=== PATIENT | female | born 1980 | race Caucasian/White ===

== ENCOUNTER 2017-01-09 13:07 | Observation (INO) | payer OTHER ==
[2017-01-09] MEDS ORDERED: ONDANSETRON INJ 4 MG/2 ML VIAL IV ONE (13:21)
[2017-01-09] MEDS ORDERED: SODIUM CHLORIDE 0.9% 1000ML 1,000 ML IVS ONE (13:21)
[2017-01-09] MEDS ORDERED: KETOROLAC TROMETHAMINE INJ 30 MG/ML VIAL IV ONE (13:21)
--- NOTE | 2017-01-09 13:25 | ED.PDOC ---
History of Present Illness - General Chief Complaint: Abdominal Pain Stated Complaint: right abdominal discomfort Time Seen by Provider: 01/09/17 13:18 Information Source: patient, RN notes reviewed, Vital Signs reviewed Exam Limitations: no limitations - History of Present Illness Initial Comments: Patient presents to ER with R flank and RUQ pain that started this morning. She is having chills, nausea, vomiting and diarrhea. No similar episodes in the past. She has been told she has kidney stones but has never passed one. No urinary symptoms. + SOB with pain, no chest pain. Abdominal Pain Onset Location: RUQ, flank - Right Pain Radiation: no radiation Quality: moderate, cramping, sharpness, stabbing Timing/Duration: 7-24 hours Improving Factors: nothing Worsening Factors: nothing Associated Symptoms: diarrhea, fever/chills, nausea/vomiting, shortness of breath Review of Systems - Review of Systems Constitutional: States: chills. Denies: diaphoresis, fever, malaise Respiratory: States: short of breath. Denies: cough Cardiology: States: no symptoms reported. Denies: chest pain Gastrointestinal/Abdominal: States: see HPI, abdominal pain, diarrhea, nausea, vomiting Genitourinary: States: no symptoms reported. Denies: dysuria, frequency, hematuria, pain Musculoskeletal: States: back pain Skin: States: no symptoms reported Neurological: States: no symptoms reported. Denies: headache Family Medical History - Family History Mother Family History: No Known Living Status: Still Living Physical Exam - Physical Exam General Appearance: Alert, Obvious distress - In obvious pain, Well Developed, Well Groomed, Well Hydrated, Well Nourished Neck: supple, normal inspection Respiratory: chest non-tender, lungs clear, normal breath sounds, no respiratory distress, no accessory muscle use Cardiovascular/Chest: regular rate, rhythm, no edema, no gallop, no JVD, no murmur Gastrointestinal/Abdominal: normal bowel sounds, soft, no organomegaly, no pulsatile mass, tenderness - RUQ and suprapubic Back Exam: CVA tenderness (R) Extremity: normal range of motion, normal inspection Neurologic: alert, normal mood/affect, oriented x 3 Skin Exam: normal color, warm/dry Comments: Vital Signs - 24 hr 01/09/17 01/09/17 13:18 14:15 Temperature 99.6 F Pulse Rate [ 115 H 84 Left Radial] Respiratory 24 24 Rate Blood Pressure 174/128 104/73 [Left Arm] O2 Sat by Pulse 97 96 Oximetry Progress - Progress Progress: 01/09/17 14:26 Patient reports minimal improvement with pain after Toradol. Discussed that CT did no't show a kidney stone on the R and no obvious cause of her abd pain. She does have multiple kidney stones in her L kidney but no ureteral stones. WBC count is up @ 18. Otherwise labs look good. Still awaiting UA. Will get gallbladder sonogram and give 1mg Dilaudid IV. 01/09/17 16:06 Back pain improved with Dilaudid. Sono suggests acute cholecystitis. Will call gen Marie. surgery 01/09/17 16:11 Will add Amylase/Lipase to labs and discuss with Hospitalist for admission. - Results/Orders Results/Orders: Laboratory Tests 01/09/17 01/09/17 13:30 15:35 WBC 18.1 H RBC 4.46 Hgb 14.1 Hct 42.3 MCV 95.0 MCH 31.7 H MCHC 33.4 RDW 12.0 Plt Count 444 H MPV 7.5 Absolute Neuts (auto) 15.90 H Absolute Lymphs (auto) 1.20 Absolute Monos (auto) 0.90 H Absolute Eos (auto) 0.00 Absolute Basos (auto) 0.10 Neutrophils % 87.9 H Lymphocytes % 6.6 L Monocytes % 4.9 Eosinophils % 0.2 L Basophils % 0.4 Sodium 139 Potassium 3.8 Chloride 106 Carbon Dioxide 27 Anion Gap 9.8 L BUN 8 Creatinine 0.71 BUN/Creatinine Ratio 11.3 Random Glucose 119 H Serum Osmolality 277.0 Calcium 9.6 Total Bilirubin 0.5 AST 22 ALT 17 Alkaline Phosphatase 131 H Serum Total Protein 8.1 Albumin 4.6 Globulin 3.5 Albumin/Globulin Ratio 1.3 Urine Color Yellow Urine Appearance Cloudy Urine pH 6.0 Ur Specific [place] 1.025 Urine Protein 30 Urine Glucose (UA) Negative Urine Ketones 80 H Urine Blood Trace-intact H Urine Nitrite Negative Urine Bilirubin Small H Urine Urobilinogen 0.2 Ur Leukocyte Esterase Negative Urine RBC 1-3 Urine WBC 1-3 Ur Epithelial Cells 5-10 Amorphous Sediment 1+ Urine Bacteria 2+ H Amylase/Lipase are normal. Departure - Departure Disposition: Discharge to Home or Self Care Departure Forms: ED Discharge - Pt. Copy, Patient Portal Self Enrollment Instructions: DI for Abdominal Pain-Adult Home Medications: Ambulatory Orders Acetaminophen W/ Codeine [Acetaminophen/Codeine Denis] 1 tab PO DAILY 01/09/17 Carisoprodol [Soma] 350 mg PO BID 01/09/17 Decision To Admit - Decistion To Admit Decision to Admit Reason: Admit from ER
--- NOTE | 2017-01-09 14:12 | CT ---
EXAM DESCRIPTION: Abdoment/Pelvis w/o Contrast CLINICAL HISTORY: right abdominal/flank discomfort COMPARISON: None. TECHNIQUE: CT of the abdomen and pelvis was performed without contrast. Multiple axial images and multiplanar reconstructions were generated. FINDINGS: Lung bases are clear. Osseous structures. Findings. Multiple bilateral. The most pronounced centimeters seen within the left mid and lower pole kidney. May be developing staghorn calculi as the largest measures 11 mm x 9 mm in diameter. There is a stone noted within the left renal pelvis which measures 5 mm in diameter. No ureteral stones noted. Smaller 2-3 mm stone seen within the right kidney. The spleen, bilateral adrenal glands, pancreas, gallbladder and liver are unremarkable. The bowel demonstrates no evidence of obstruction. The appendix is unremarkable on today's exam. Left ovarian cyst measuring 25 mm in diameter. Patient is status post hysterectomy. Fat-containing umbilical hernia. The abdominal aorta is unremarkable. IMPRESSION: 1. Multiple bilateral renal stones noted. Query development of a staghorn calculus from Klebsiella within the left kidney. 2. There is a 5 mm stone noted within the left UPJ which at this time is not causing obstruction. 3. No ureteral stone or urinary bladder stones. Electronically signed by: Jose Manuel Robles MD 01/09/2017 2:11 PM CDT
[2017-01-09] MEDS ORDERED: HYDROmorphone HCL INJ 2 MG/ML VIAL IV ONE ×2 (14:24→18:45)
--- NOTE | 2017-01-09 15:54 | US ---
EXAM DESCRIPTION: Gall Bladder ultrasound CLINICAL HISTORY: RUQ/R flank pain - no kidney stone on CT COMPARISON: CT abdomen/pelvis earlier same day TECHNIQUE: Routine sonographic images of the right upper quadrant of the abdomen were acquired and submitted for review. FINDINGS: Liver: Normal in size and echogenicity. Bile ducts- Intrahepatic and extrahepatic bile ducts not dilated with common bile duct measuring 5 mm. Gallbladder: The gallbladder contains numerous shadowing calculi which measure up to 26 mm in diameter. The gallbladder wall is normal at 2 mm. A positive sonographic Toussaint sign is reported when scanning over the gallbladder. Pancreas: Visualized portions are unremarkable. Portions of the body and tail are not well seen due to bowel gas. Right kidney: Visualized portions are unremarkable Aorta & Inferior vena cava: Not well seen due to bowel gas. Ascites: none IMPRESSION: Cholelithiasis with positive sonographic Toussaint sign. This is highly specific for acute cholecystitis. Electronically signed by: Umer Chung MD 01/09/2017 3:53 PM CDT
--- NOTE | 2017-01-09 17:30 | HP ---
CHIEF COMPLAINT: Abdominal pain. HISTORY OF PRESENT ILLNESS: The patient is a 36 year-old female who was in her normal state of good health, who developed abdominal pain overnight. She felt it was heartburn and she took antacids which gave her no relief, so she presented to the Emergency Room and was found to have right upper quadrant pain. She denies history of symptoms like this, at least in this intensity. She has had nausea and vomiting at home. No fever or chills. Denies a history of hepatitis, jaundice or pancreatitis. PAST MEDICAL HISTORY: 1. Positive for child times 2. 2. Lobar lumbar back injury. She has not had surgery. PAST SURGICAL HISTORY: 1. Laparoscopically-assisted vaginal hysterectomy leaving her ovaries intact. CURRENT MEDICATIONS: 1. Lexapro daily. 2. Wellbutrin daily. 3. Soma. 4. Tylenol #4 which she receives from Dr[address] Ta. ALLERGIES: NO KNOWN DRUG ALLERGIES. FAMILY HISTORY: Positive for biliary tract disease. SOCIAL HISTORY: The patient is and lives here in [place] with her . She works for [employer]. There is no history of tobacco abuse or alcohol abuse. REVIEW OF SYSTEMS: Noncontributory, except as in the History of Present Illness. She denies chest pain, shortness of breath. She denies urinary tract symptoms. Denies weight loss, weight gain or change in her bowel habits. PHYSICAL EXAMINATION: VITAL SIGNS: Currently afebrile and normotensive. GENERAL: Awake, alert and cooperative, and in mild to moderate distress. HEENT: Reveals sclera to be nonicteric. Mucous membranes are moist. NECK: Without adenopathy. BACK: Without CVA tenderness. CHEST: She has equal breath sounds bilaterally. ABDOMEN: Soft. There is mild tenderness in the right upper quadrant without rebound, guarding or mass. PELVIC AND RECTAL: Examinations are deferred. EXTREMITIES: Without clubbing, cyanosis or edema. LABORATORY: White count 18,000 with 87% neutrophils, hemoglobin 14.1, platelet count 444,000. She has a glucose of 119, creatinine 0.71, potassium 3.8. Alkaline phosphatase is slightly elevated at 131 with AST, ALT and total bilirubin within normal limits. Amylase and lipase are within normal limits. Urinalysis reveals specific gravity of 1.025, 2+ bacteria, negative leukocyte esterase and 80 ketones. Ultrasound of the abdomen reveals gallstones with no pericholecystic fluid, but she did have a positive sonographic Toussaint's sign. ASSESSMENT: 1. Symptomatic cholelithiasis, rule out cholecystitis versus biliary colic. 2. Mild dehydration. PLAN: Admission with analgesia and antiemetics. She will be started on IV antibiotics and made NPO after midnight. The risks, benefits, and alternatives to laparoscopic cholecystectomy have been discussed and accepted. The plan will be to repeat lab in the morning. If there is no significant change, proceed with cholecystectomy tomorrow. #[id number] [facility]
[2017-01-09] MEDS ORDERED: ONDANSETRON INJ 4 MG/2 ML VIAL IV PRN (17:45)
[2017-01-09] MEDS ORDERED: PANTOPRAZOLE SODIUM IV 40 MG VIAL IV SCH (18:00)
[2017-01-09] MEDS ORDERED: levoFLOXacin 500MG IV 100 ML IVPB ONE (18:05)
[2017-01-09] MEDS: HYDROmorphone HCL INJ 2 MG/ML VIAL IV PRN ×4 (18:08→23:21)
[2017-01-09] MEDS: KCL 20MEQ/D5 1/2NS 1,000 ML IVS PRN (18:15)
[2017-01-09] MEDS: levoFLOXacin 500MG IV 500 MG in PREMIX BAG 1 BAG IVPB SCH (18:16)
[2017-01-09] MEDS ORDERED: PROMETHAZINE SUPP 25 MG SUP PR ONE ×2 (18:39→18:40)
[2017-01-09] MEDS ORDERED: CHLORHEXIDINE GLUCONATE 4 % 15 ML UD TOP ONE (21:45)
[2017-01-10] MEDS: KCL 20MEQ/D5 1/2NS 1,000 ML IVS PRN ×3 (03:35→16:02)
[2017-01-10] MEDS: HYDROmorphone HCL INJ 2 MG/ML VIAL IV PRN ×3 (04:02→14:15)
[2017-01-10] MEDS ORDERED: LIDOCAINE 1% 10 ML VIAL INJ ONE (08:00)
[2017-01-10] MEDS ORDERED: DEXAMETHASONE INJ 10 MG/ML VIAL ONE (08:00)
[2017-01-10] MEDS ORDERED: raNITIdine HCL INJ 25 MG/ML VIAL ONE (08:00)
[2017-01-10] MEDS ORDERED: PROPOFOL 200 MG/20 ML VIAL IV ONE (08:00)
[2017-01-10] MEDS ORDERED: NEOSTIGMINE METHYLSULFATE 1 MG/ML ML IV ONE (08:00)
[2017-01-10] MEDS ORDERED: GLYCOPYRROLATE 0.2 MG/ML VIAL ONE (08:00)
[2017-01-10] MEDS ORDERED: BUPIVACAINE 0.25% W/EPI 50 ML VIAL INJ ONE (09:27)
[2017-01-10] MEDS ORDERED: HEPARIN SODIUM (PORCINE) 10,000 UNITS/ML VIAL ONE (09:27)
[2017-01-10] MEDS ORDERED: MIDAZOLAM INJ 5 MG/5 ML VIAL ONE (09:31)
[2017-01-10] MEDS ORDERED: fentaNYL CITRATE INJ 50 MCG/ML AMP ONE (09:31)
[2017-01-10] MEDS ORDERED: ROCURONIUM BROMIDE 10 MG/ML VIAL ONE (09:31)
[2017-01-10] MEDS ORDERED: ELECTROLYTE-A 1,000 ML ONE (09:45)
[2017-01-10] MEDS ORDERED: ONDANSETRON INJ 4 MG/2 ML VIAL IV PRN (11:41)
--- NOTE | 2017-01-10 13:49 | OP ---
DATE OF PROCEDURE: 01/10/17 PREOPERATIVE DIAGNOSIS: 1. Cholelithiasis. 2. Cholecystitis. 3. Elevated liver function tests. POSTOPERATIVE DIAGNOSIS: 1. Cholelithiasis. 2. Cholecystitis. 3. Elevated liver function tests. 4. Subacute cholecystitis. PROCEDURE: 1. Laparoscopic cholecystectomy with intraoperative cholangiography. SURGEON: Finn Avilez MD. CUSTODIAL MAINTENANCE WORKER: None. ANESTHESIA: Local infiltration of 0.25% Marcaine with epinephrine and general endotracheal anesthesia. INDICATION: The patient is a 36-year-old female who was admitted with severe colicky abdominal pain on the right side with associated nausea and vomiting. She had a leukocytosis. She was given a dose of Levaquin last night. Through the night, she passed a kidney stone, which we did know she had, mainly on the left side, but her pain was persisting in the right upper quadrant. Her liver functions were elevated this morning with a normal bilirubin. After further questions were answered, the risks, benefits and alternatives had been discussed last night, and she was brought to the Surgical Suite today for cholecystectomy with indicated procedures. FINDINGS: The patient had a small cystic duct, but upon opening the cystic duct, there were multiple small stones or sludge which was milked out, so cholangiogram was performed which showed free flow into the duodenum with no filling defects or strictures noted. The gallbladder wall was somewhat thin, but also edematous. She had multiple stones. The gallbladder was partially intrahepatic. DESCRIPTION OF PROCEDURE: After adequate general endotracheal anesthesia was obtained, the patient was prepped and draped in the usual sterile manner. Surgical time-out was taken. The infraumbilical area was infiltrated with 0.25 % Marcaine with epinephrine. local anesthesia. A curvilinear incision was fashioned and carried down through the subcutaneous tissue to the midline fascia. Traction sutures were placed on either side of the midline. A small incision was made in the midline fascia and the peritoneum was opened bluntly. Tom trocar was introduced under direct vision into the abdominal cavity and fixed in place with the traction sutures. CO2 was then insufflated until a pressure of 12 mmHg was reached and the abdomen was tympanitic in all four quadrants. When this was done, the laparoscope was introduced. The abdomen was inspected with the previously noted findings. The patient was then placed in reverse Trendelenburg position, turned to the left side. The upper abdominal ports were placed under direct vision. The gallbladder was grasped, retracted anteriorly and laterally. The neck of the gallbladder was retracted laterally. The triangle of Calot was then explored with blunt dissection and what appeared to be the cystic duct was identified. It was clipped proximally. While incision was made in the cystic duct, initially bile was not obtained and it was milked and several small stones versus sludge were removed and then bile became evident. Due to the stones or sludge in the cystic duct and the liver function, cholangiogram was performed. When this was done, through a separate stab wound in the right upper quadrant, cystic duct catheter was introduced into the cystic duct and clipped in place. Cholangiograms were then taken using fluoroscopy which revealed free flow into the duodenum with no filling defects or strictures noted. When this was done, the cystic duct catheter was removed. The cystic duct was hemoclipped three times distally and divided between the hemoclips. The cystic artery was divided proximally and distally. Two other arterial vessels were identified and clipped. The gallbladder was then dissected free from the gallbladder bed of the liver with some difficulty due to the thin wall and the intrahepatic gallbladder. Eventually, the gallbladder was removed from the gallbladder bed of the liver, placed in an EndoCatch bag and removed from the infraumbilical port site in the usual manner under direct vision. When this was done, attention was made to the gallbladder bed of the liver which had a small amount of oozing which was controlled relatively easily with electrocautery turned up to about 50 on coag. When this was done, again, the subhepatic space was irrigated copiously with saline and the hudson hepatis was inspected and no active bleeding or bile leak was identified. The gallbladder bed of the liver had no active bleeding. The subphrenic space on the right was irrigated with saline. The effluent was noted to be clear. At this point, the upper abdominal ports were removed under direct vision. The lateral port site had small oozing which was controlled with electrocautery. At this point, the CO2, the laparoscope and the infraumbilical port were removed. The infraumbilical port site fascia was approximated with a single [id number] suture of 0 Vicryl. Subcutaneous tissue was irrigated with saline. Skin edges were approximated with 4-0 Vicryl subcuticular sutures, benzoin and Steri-Strips. Sterile dressings were applied. The patient was awakened and taken to the Recovery Room in good and stable condition. Estimated blood loss was 100 to 150 mL. All sponge, needle and instrument counts were correct. #[id number] [facility]
[2017-01-10] MEDS: HYDROcodone 5MG/APAP 325MG 1 EA TAB PO PRN ×2 (15:15→21:44)
[2017-01-10] MEDS ORDERED: levoFLOXacin 500MG IV 100 ML IVPB ONE (17:55)
[2017-01-10] MEDS: levoFLOXacin 500MG IV 500 MG in PREMIX BAG 1 BAG IVPB SCH (18:10)
[2017-01-10] MEDS ORDERED: SODIUM CHLORIDE 0.9% 10 ML VIAL ONE (20:45)
[2017-01-10] MEDS ORDERED: PANTOPRAZOLE SODIUM IV 40 MG VIAL IV SCH (21:00)
[2017-01-10] MEDS ORDERED: SUMAtriptan SUCCINATE 50 MG TAB PO ONE (21:39)
[2017-01-10] MEDS ORDERED: PROMETHAZINE HCL INJ 25 MG in SODIUM CHLORIDE 0.9% 50ML 50 ML IVPB ONE (21:41)
[2017-01-10] MEDS ORDERED: SODIUM CHLORIDE 0.9% 50ML 0 ML ONE (22:00)
[2017-01-10] MEDS ORDERED: PROCHLORPERAZINE INJ 10 MG/2 ML VIAL IV ONE (22:28)
[2017-01-10] MEDS ORDERED: SUMAtriptan SUCCINATE 50 MG TAB PO PRN (23:40)
[2017-01-10] MEDS ORDERED: PROCHLORPERAZINE INJ 10 MG/2 ML VIAL ONE (23:45)
[2017-01-11] MEDS: HYDROcodone 5MG/APAP 325MG 1 EA TAB PO PRN ×2 (02:01→10:03)
[2017-01-11] MEDS: KCL 20MEQ/D5 1/2NS 1,000 ML IVS PRN (04:33)
[2017-01-11 07:21] VITALS: BP 106/73; TEMP 98.3
--- NOTE | 2017-01-11 10:01 | DS ---
FINAL DIAGNOSIS: 1. Subacute cholelithiasis. 2. Postoperative headache, likely vascular. SURGICAL PROCEDURE: Laparoscopic cholecystectomy with cholangiography on . HISTORY OF PRESENT ILLNESS: The patient is a 36 year-old female who was in her normal state of good health, who developed abdominal pain overnight. She felt it was heartburn and she took antacids which gave her no relief, so she presented to the Emergency Room and was found to have right upper quadrant pain. She denies history of symptoms like this, at least in this intensity. She has had nausea and vomiting at home. No fever or chills. Denies a history of hepatitis, jaundice or pancreatitis. LABORATORY: On the first postoperative day, the date of discharge, white count was 11,000 with 72% neutrophils. Hemoglobin 12.0, platelet count 364,000. Liver function tests had AST 76, ALT 97, alkaline phosphatase 147 with total bilirubin 1.5. These are all decreased from her preoperative levels. Potassium 3.8, creatinine 0.70. Pathology repot is pending at time of discharge. HOSPITAL COURSE: The patient was admitted through the Emergency Room on the late afternoon of 01/09/17. She was started on IV Levaquin. 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 Her liver function tests had increased from essentially normal in the Emergency Room, so after the risks, benefits and alternatives to the procedure were discussed and accepted and all questions were answered, she was taken to the Operating Room on the morning of 01/10/17 where she underwent the laparoscopic cholecystectomy. She tolerated the procedure well. She tolerated a clear liquid diet well. By the next morning, her headache had resolved and at that time, her liver functions were improved. She was afebrile and she was discharged. CONDITION ON DISCHARGE: Improved. PROGNOSIS: Excellent. DISPOSITION: The patient is to followup in my office in ten days. She is discharged on a low fat diet and told to push fluids. She is told she can ambulate, but do no lifting or exercise. She is told she can shower, but not tub bath. She is to take her own Tylenol No. 4 that she receives from Dr. Ta for her back and will not be given any further antibiotic. She has been instructed if she has nausea, vomiting, fever, chills, increasing abdominal problems or questions, to call me. She has also been instructed to take Milk of Magnesia for any problems with constipation. #[id number] [facility] [place]
[2017-01-11 15:02] VITALS: O2SAT 97
== END 2017-01-11 11:04 | disposition home or self-care (01) ==
LOC: ER 13:07 → MS 17:30 → INTOOBSV 17:30
PROVIDERS: ADMIT Surgery; ATTEND Surgery
DX: K80.10 Calculus of gallbladder with chronic cholecystitis without obstruction (principal); N20.0 Calculus of kidney; R51 Headache; E86.0 Dehydration; R11.2 Nausea with vomiting, unspecified; Z79.899 Other long term (current) drug therapy; Z90.710 Acquired absence of both cervix and uterus
CPT/HCPCS: 00790; 36415 ×3; 47563; 74176; 76000; 76705; 80053 ×3; 81001; 82150; 83690; 85025 ×3; 96361; 96365; 96366; 96375 ×3; 96376 ×2; 99284; G0378; J0780; J1100; J1170 ×9; J1644; J1885; J1956 ×2; J2250; J2405; J2710; J2780; J3010; J3490; J7030; J8498

== ENCOUNTER 2017-05-29 16:52 | Emergency (ER) | payer OTHER ==
--- NOTE | 2017-05-29 17:02 | ED.PDOC ---
History of Present Illness - General Chief Complaint: Problem Stated Complaint: kidney stones Time Seen by Provider: 05/29/17 17:01 Source: patient Exam Limitations: no limitations - History of Present Illness Initial Comments: Dayana Saini 36 y/o female with history of nephrolithiasis stated that she had stabbing left flank pain this morning radiating to groin left also stated feels feverish.No nausea/vomiting no dysuria Timing/Duration: this morning Quality: moderate, stabbing Radiation: left flank Activites at Onset: none Prior abdominal problems: similar symptoms - had passed out kidney stone in january/2017 Sexual intercourse history: single partner Improving Factors: nothing Worsening Factors: nothing Associated Symptoms: denies symptoms Allergies/Adverse Reactions: Allergies NO KNOWN ALLERGY Allergy (Verified 05/29/17 17:03) Home Medications: Ambulatory Orders Acetaminophen W/ Codeine [Acetaminophen/Codeine Denis] 1 tab PO DAILY 01/09/17 Amitriptyline HCl [Elavil] 25 mg PO BEDTIME 01/09/17 Bupropion HCl [Wellbutrin Xl] 150 mg PO DAILY 01/09/17 Carisoprodol [Soma] 350 mg PO BID 01/09/17 Escitalopram [Lexapro] 10 mg PO DAILY 01/09/17 Review of Systems - Review of Systems Constitutional: States: no symptoms reported EENTM: States: no symptoms reported Respiratory: States: no symptoms reported Cardiology: States: no symptoms reported Gastrointestinal/Abdominal: States: no symptoms reported Genitourinary: States: see HPI Past Medical History (General) - Patient Medical History Hx Seizures: No Hx Stroke: No Hx Asthma: No Hx of COPD: No Hx Congestive Heart Failure: No Hx Pacemaker: No Hx Hypertension: No Hx Diabetes: No Hx MRSA: No Hx Other PMH: Yes - nephrolithiasis Surgical History: cholecystectomy, other - hysterectomy - Vaccination History Hx Influenza Vaccination: No Hx Pneumococcal Vaccination: No - Social History Hx Tobacco Use: No Hx Alcohol Use: No Hx Substance Use: No Hx Physical Abuse: No Hx Emotional Abuse: No - Activities of Daily Living Patient Lives Alone: No - family Family Medical History - Family History Mother Family History: No Known Living Status: Still Living Physical Exam - Physical Exam General Appearance: Alert, No apparent distress Eyes, Ears, Nose, Throat Exam: PERRL/EOMI, normal ENT inspection, pharynx normal Neck: non-tender, supple Cardiovascular/Respiratory: regular rate, rhythm, no M/R/G, normal breath sounds Gastrointestinal/Abdominal: normal bowel sounds, non tender, soft, no organomegaly Back Exam: no CVA tenderness, no vertebral tenderness Extremity: non-tender, no pedal edema, no calf tenderness Neurologic: alert, oriented x 3 Skin Exam: normal color, warm/dry Lymphatic: no adenopathy Progress - Progress Progress: 05/29/17 17:17 Vital Signs - 8 hr 05/29/17 17:03 Temperature 99.1 F Pulse Rate [ 86 Right Radial] Respiratory 20 Rate Blood Pressure 142/97 [Right Arm] O2 Sat by Pulse 97 Oximetry - Results/Orders Results/Orders: Laboratory Tests 05/29/17 05/29/17 05/29/17 17:05 17:14 17:14 WBC 10.1 RBC 4.24 Hgb 13.4 Hct 39.5 MCV 93.2 MCH 31.7 H MCHC 34.0 RDW 12.3 Plt Count 343 MPV 7.8 Absolute Neuts (auto) 6.90 H Absolute Lymphs (auto) 2.20 Absolute Monos (auto) 0.80 Absolute Eos (auto) 0.10 Absolute Basos (auto) 0.10 Neutrophils % 68.5 Lymphocytes % 21.6 Monocytes % 8.1 Eosinophils % 1.1 Basophils % 0.7 Sodium 138 Potassium 3.4 L Chloride 102 Carbon Dioxide 28 Anion Gap 11.4 L BUN 6 L Creatinine 0.66 BUN/Creatinine Ratio 9.1 L Random Glucose 105 Serum Osmolality 273.7 L Calcium 9.4 Urine Color Yellow Urine Appearance Clear Urine pH 7.0 Ur Specific [place] 1.015 Urine Protein Negative Urine Glucose (UA) Negative Urine Ketones Negative Urine Blood Moderate H Urine Nitrite Negative Urine Bilirubin Negative Urine Urobilinogen 0.2 Ur Leukocyte Esterase Trace H Urine RBC 1-3 Urine WBC 1-3 Ur Epithelial Cells 1-3 Urine Bacteria 0 - EKG/XRAY/CT CT Ordered: Yes - abd /p-left ureteral stone 6.6mm pelvic brim Departure - Departure Clinical Impression: Ureterolithiasis, Bilateral nephrolithiasis, Left flank pain Time of Disposition: 18:47 Disposition: Discharge to Home or Self Care Condition: Good Instructions: Kidney Stones (Alternative Therapy), Kidney Stones -- Adult, Extracorporeal Shock Wave Lithotripsy for Kidney Stones, DI for Kidney Stones Referrals: JESS TUCKER [Primary Care Provider] - 1-2 Weeks Home Medications: Ambulatory Orders Acetaminophen W/ Codeine [Acetaminophen/Codeine Denis] 1 tab PO DAILY 01/09/17 Amitriptyline HCl [Elavil] 25 mg PO BEDTIME 01/09/17 Bupropion HCl [Wellbutrin Xl] 150 mg PO DAILY 01/09/17 Carisoprodol [Soma] 350 mg PO BID 01/09/17 Escitalopram [Lexapro] 10 mg PO DAILY 01/09/17 Additional Instructions: Continue with your pain medications; May take Aleve(otc) 2 tablets 3 x a day with your pain medication;Call up Dr. Faustin office in am 05/30/2017;RETURN TO EMERGENCY ROOM NEEDED
--- NOTE | 2017-05-29 17:59 | CT ---
EXAM DESCRIPTION: Abdoment/Pelvis w/o Contrast CLINICAL HISTORY: 36 years Female, flank pain/hx of nephrolithiasis COMPARISON: 09 January 2017 TECHNIQUE: Transaxial images were obtained without intravenous or oral contrast media. Sagittal and coronal reconstruction was performed.This exam was performed according to our departmental dose-optimization program, which includes automated exposure control, adjustment of the mA and/or kV according to patient size and/or use of iterative reconstruction technique. FINDINGS: The lung bases are clear. Diffuse fatty infiltration of liver is observed. A small cyst is observed in the spleen. The gallbladder is been previously removed. Surgical clips are seen in the region of the gallbladder fossa. No biliary ductal dilatation is observed. The pancreas is normal in appearance. No adrenal masses are detected. Bilateral renal calculi are observed. At least 3 right renal calculi are observed. The largest stone measures 3.5 mm in diameter. A staghorn type calcification is observed on the left. It measures 1.58cm in greatest dimension. 3 or 4 other smaller stones are observed in the lower pole. The exam reveals some mild left-sided hydronephrosis. A 6.6 mm diameter stone is seen to obstruct the left ureter the level of the pelvic brim. A benign appearing 3.7 cm diameter cyst is observed in the left ovary. The patient is post hysterectomy. No bone abnormality of significance is detected. No bowel abnormality is detected. IMPRESSION: 1. Hepatic steatosis. 2. Bilateral renal calculi are observed. A 6.6 mm diameter calculus is seen to obstruct the mid left ureter. 3. Hysterectomy Electronically signed by: Bc Arriaga MD 05/29/2017 5:57 PM CDT
[2017-05-29] MEDS ORDERED: TAMSULOSIN 0.4 MG CAP PO ONE (18:02)
[2017-05-29] MEDS ORDERED: KETOROLAC TROMETHAMINE INJ 30 MG/ML VIAL IV ONE (18:02)
[2017-05-29] MEDS ORDERED: HYDROcodone 10MG/APAP 325MG 1 EA TAB PO ONE (18:02)
[2017-05-29] MEDS ORDERED: LACTATED RINGERS 1,000 ML IVS ONE (18:02)
[2017-05-29] MEDS ORDERED: HYDROcodone 10MG/APAP 325MG 1 EA TAB ONE (19:24)
[2017-05-29] MEDS ORDERED: TAMSULOSIN 0.4 MG CAP ONE (19:24)
[2017-05-29] MEDS ORDERED: KETOROLAC TROMETHAMINE INJ 30 MG/ML VIAL ONE (19:24)
[2017-05-29 19:32] VITALS: TEMP 97.9; O2SAT 98
[2017-05-29 20:18] VITALS: BP 111/74
== END 2017-05-29 20:16 | disposition home or self-care (01) ==
LOC: ER 16:52
DX: N20.2 Calculus of kidney with calculus of ureter (principal); Z87.442 Personal history of urinary calculi; Z87.891 Personal history of nicotine dependence
CPT/HCPCS: 36415; 74176; 80048; 81001; 85025; J1885; J7120